=== PATIENT | male | born 1975 | race Caucasian/White ===

== ENCOUNTER 2023-02-03 13:54 | Emergency (ER) | payer MEDICARE, MEDICAID ==
[~2023-02-03] VITALS: Ht 177.8 cm; Wt 94.3 kg
[~2023-02-03 13:54] MED LIST: ALPR2TAB2 PO; AMPH30TA2 PO; CARI350T PO; CRS350T PO; GABA800T PO; OMEP-10 PO; PROP10TA8 PO; TRAM50TA2 PO; TRM50T PO
--- NOTE | 2023-02-03 14:38 | ED General ---
General Chief Complaint: General Problems/Pain Stated Complaint: LOWER BACK PAIN | VISION LOSS | SHRINKAGE Nursing Triage Note: PT AMB TO [facility] 7 WITH C/O LOW BACK PAIN, BLURRY VISION, LUMPS ALL OVER BODY, SHRINKAGE OF PRIVATE PARTS, DEFORMED TONGUE AND THINKS HE HAS RADIATION POISONING. PT STATES ALL SYMPTOMS STARTED SEVERAL MONTHS AGO Source of Information: Patient Exam Limitations: No Limitations History of Present Illness Date Seen by Provider: Feb 03, 2023 Time Seen by Provider: 14:34 Initial Comments Patient is a 47-year-old male who presents to the ED for multiple complaints. Patient states he has had low back pain for the past 2 to 3 months. Described as sharp located bilateral lower abdomen. Pain is constant not necessarily worse with movement. Frequent urination without any blood or mucus in his urine . Has been taking Tylenol without much improvement. States he had an MRI 1 month ago which was unremarkable. Denies of any specific injury. Patient states he has had blurry vision for the past 4 months. Blurry vision seems to be worse with closer object. Denies of any headache with this blurry vision or unilateral weakness or sensory changes. Patient states symptoms appeared to occur after he he received radiation from x-ray of his abdomen as he was complaining of abdominal pain at that time. States he has pain all over feels distended. Decreased appetite not eating as much. He is concerned he has radiation poisoning or some type of cancer. History of colon cancer. Reports normal bowel movements. Patient denies fever, chills, chest pain, shortness of breath, cough, vomiting or diarrhea. Patient also reports knots that developed to his upper and lower extremities. Denies of any injuries or on blood thinners. Patient is concern for radiation poisoning. He is concerned that his cells are breaking down. Allergies and Home Medications Allergies Coded Allergies: No Known Drug Allergies (Unverified , 12/26/13) Patient Home Medication List Home Medication List Reviewed: Yes Alprazolam (Xanax) 2 Mg Tablet, 2 MG PO QID, (Reported) Entered as Reported by: JIN KLEIN on 12/26/13 5606 Amphet Asp/Amphet/D-Amphet (Adderall 30 Mg Tablet) 30 Mg Tablet, 30 MG PO TID, (Reported) Entered as Reported by: JIN KLEIN on 12/26/13 2020 Carisoprodol (Soma) 350 Mg Tablet, 1 TAB PO TID Prescribed by: SUMIT LUGO on 12/26/13 133 Carisoprodol (Soma) 350 Mg Tablet, 350 MG PO five times daily, (Reported) Entered as Reported by: JIN KLEIN on 12/26/131336 Gabapentin (Neurontin) 800 Mg Tablet, 800 MG PO QID, (Reported) Entered as Reported by: JIN KLEIN on 12/26/131336 Omeprazole (Prilosec 20 Mg) 20 Mg Capsule.dr, 20 MG PO BID, (Reported) Entered as Reported by: JIN KLEIN on 12/26/13 133 Propranolol Hcl (Inderal) 10 Mg Tablet, 10 MG PO QID, (Reported) Entered as Reported by: JIN KLEIN on 12/26/131336 Tramadol Hcl (Ultram) 50 Mg Tab, 50 MG PO Q4-6HR PRN for PAIN Prescribed by: SUMIT LUGO on 12/26/13 133 Tramadol Hcl (Tramadol Hcl) 50 Mg Tablet, 50 MG PO Q4H, (Reported) Entered as Reported by: JIN KLEIN on 12/26/131336 Review of Systems Review of Systems Constitutional: No chills, No diaphoresis, No malaise, No weakness EENTM: blurred vision; No hearing loss, No double vision Respiratory: No cough, No dyspnea on exertion Cardiovascular: No chest pain Gastrointestinal: abdominal pain; No constipation, No diarrhea, No dysphagia, No nausea, No vomiting Genitourinary: No decreased output, No discharge, No dysuria; frequency Musculoskeletal: back pain; No joint pain; muscle pain Skin: No change in color, No change in hair/nails All Other Systems Reviewed Negative Unless Noted: Yes Past Lhlsjtl-Cpbtjt-Vfvyao Hx Patient Social History Tobacco Use?: No Use of E-Cig and/or Vaping dev: Yes Substance use?: No Alcohol Use?: No Pt feels they are or have been: No Immunizations Up To Date PED Vaccines UTD: Yes Past Medical History Surgery/Hospitalization HX: ANXIETY, DEPRESSION, NEUROPATHY Surgeries: Yes Appendectomy Respiratory: No Cardiac: Yes Hypertension Neurological: No Musculoskeletal: Yes Chronic Back Pain Psychosocial: Yes (self-mutilation, panic disorder with agoraphobia) ADD/ADHD, Anxiety, ODD Physical Exam Vital Signs Vital Signs - First Documented 02/03/23 14:08 Temp 36.4 Pulse 78 Resp 14 B/P (MAP) 169/103 (125) Pulse Ox 99 O2 Delivery Room Air Capillary Refill : Height, Weight, BMI Height: 5'10.00" Weight: 165lbs. oz. [id number]; 29.00 BMI Method:Stated General Appearance: No Apparent Distress, WD/WN Eyes: Bilateral Eye Normal Inspection, Bilateral Eye PERRL, Bilateral Eye EOMI HEENT: PERRL/EOMI, TMs Normal, Normal ENT Inspection, Pharynx Normal Neck: Full Range of Motion, Normal Inspection, Non Tender, Supple Respiratory: Chest Non Tender, Lungs Clear, Normal Breath Sounds, No Accessory Muscle Use, No Respiratory Distress Cardiovascular: Regular Rate, Rhythm, No Edema, No Gallop, No JVD, No Murmur Gastrointestinal: Normal Bowel Sounds, No Organomegaly, No Pulsatile Mass, Non Tender Back: Normal Inspection, No CVA Tenderness, No Vertebral Tenderness Extremity: Normal Capillary Refill, Normal Inspection, Normal Range of Motion, Non Tender Neurologic/Psychiatric: Alert, Oriented x3, No Motor/Sensory Deficits, Normal Mood/Affect, material engineer II-XII Norm as Tested Skin: Normal Color, Warm/Dry Progress/Results/Core Measures Suspected Sepsis SIRS Temperature: Pulse: 78 Respiratory Rate: 14 Laboratory Tests 02/03/23 14:32: White Blood Count 7.8 Blood Pressure 169 /103 Mean: 125 Laboratory Tests 02/03/23 14:32: Creatinine 0.87, Platelet Count 324, Total Bilirubin 0.4 Results/Orders Lab Results Laboratory Tests Test 02/03/23 14:32 02/03/23 14:44 Range/Units White Blood Count 7.8 4.3-11.0 10^3/uL Red Blood Count 4.57 4.30-5.52 10^6/uL Hemoglobin 14.3 13.3-17.7 g/dL Hematocrit 43 40-54 % Mean Corpuscular Volume 93 80-99 fL Mean Corpuscular Hemoglobin 31 25-34 pg Mean Corpuscular Hemoglobin Concent 34 32-36 g/dL Red Cell Distribution Width 12.7 10.0-14.5 % Platelet Count 324 130-400 10^3/uL Mean Platelet Volume 9.3 9.0-12.2 fL Immature Granulocyte % (Auto) 0 % Neutrophils (%) (Auto) 59 42-75 % Lymphocytes (%) (Auto) 26 12-44 % Monocytes (%) (Auto) 11 0-12 % Eosinophils (%) (Auto) 4 0-10 % Basophils (%) (Auto) 1 0-10 % Neutrophils # (Auto) 4.6 1.8-7.8 10^3/uL Lymphocytes # (Auto) 2.0 1.0-4.0 10^3/uL Monocytes # (Auto) 0.8 0.0-1.0 10^3/uL Eosinophils # (Auto) 0.3 0.0-0.3 10^3/uL Basophils # (Auto) 0.1 0.0-0.1 10^3/uL Immature Granulocyte # (Auto) 0.0 0.0-0.1 10^3/uL Sodium Level 141 135-145 MMOL/L Potassium Level 4.1 3.6-5.0 MMOL/L Chloride Level 107 98-107 MMOL/L Carbon Dioxide Level 25 21-32 MMOL/L Anion Gap 9 5-14 MMOL/L Blood Urea Nitrogen 9 7-18 MG/DL Creatinine 0.87 0.60-1.30 MG/DL Estimat Glomerular Filtration Rate 106 BUN/Creatinine Ratio 10 Glucose Level 88 70-105 MG/DL Calcium Level 9.1 8.5-10.1 MG/DL Corrected Calcium 8.9 8.5-10.1 MG/DL Total Bilirubin 0.4 0.1-1.0 MG/DL Aspartate Amino Transf (AST/SGOT) 16 5-34 U/L Alanine Aminotransferase (ALT/SGPT) 16 0-55 U/L Alkaline Phosphatase 49 40-136 U/L C-Reactive Protein High Sensitivity 0.03 0.00-0.50 MG/DL Total Protein 7.0 6.4-8.2 GM/DL Albumin 4.3 3.2-4.5 GM/DL Lipase 31 8-78 U/L Urine Color YELLOW Urine Clarity SL CLOUDY Urine pH 7.5 5-9 Urine Specific [place] 1.015 L 1.016-1.022 Urine Protein NEGATIVE NEGATIVE Urine Glucose (UA) NEGATIVE NEGATIVE Urine Ketones NEGATIVE NEGATIVE Urine Nitrite NEGATIVE NEGATIVE Urine Bilirubin NEGATIVE NEGATIVE Urine Urobilinogen 1.0 < = 1.0 MG/DL Urine Leukocyte Esterase NEGATIVE NEGATIVE Urine RBC (Auto) NEGATIVE NEGATIVE Urine RBC NONE /HPF Urine WBC RARE /HPF Urine Crystals PRESENT H /LPF Urine Amorphous Sediment MOD SYLVESTER PHOSPHATE H /LPF Urine Bacteria MODERATE H /HPF Urine Casts NONE /LPF Urine Mucus NEGATIVE /LPF Urine Culture Indicated YES My Orders Orders - LB ORTIZ Cbc With Automated Diff (02/03/23 14:27) Comprehensive Metabolic Panel (02/03/23 14:27) Lipase (02/03/23 14:27) Ua Culture If Indicated (02/03/23 14:27) Hs C Reactive Protein (02/03/23 14:27) Iv/Invasive Line Insertion .IV INSERT (02/03/23 14:27) Urine Culture (02/03/23 14:44) Vital Signs/I&O 02/03/23 14:08 Temp 36.4 Pulse 78 Resp 14 B/P (MAP) 169/103 (125) Pulse Ox 99 O2 Delivery Room Air Capillary Refill : Blood Pressure Mean: 125 Departure Communication (PCP) Patient with multiple complaints. Symptoms over the past 3 to 4 months. Vital signs stable. Patient is concern for potential radiation poisoning from a x-ray of his abdomen 3 to 4 months ago. Has had blurry vision seems to be worse with objects closer. No complete visual loss. Bilateral flank pain for the past few months. Generalized abdominal pain reports normal bowel movements. No fever, night sweats, chest pain or shortness of breath. Patient also reports low back pain had a MRI performed 1 month ago which she states was unremarkable. No bowel or urine incontinence or saddle paresthesia. No neurological red flag findings. Denies of any headache. Due to length of symptoms did suggest generalized lab work. Patient is concerned for cancer and "cell breakdown". G eneral lab work was grossly unremarkable CBC, CMP. Urinalysis without evidence of infection or hematuria suggesting kidney stone of his flank pain. Did offer CT scan of the abdomen as he states he feels bloated and had this continues abdominal pain but patient would rather wait at this time. Family history of colon cancer. suggest following up with your primary care physician for further evaluation of your symptoms. He does not appear toxic or septic. Patient is currently being managed by [facility] in [place]. Impression Primary Impression: Abdominal pain Additional Impression: Blurry vision Disposition: 01 HOME, SELF-CARE Condition: Stable Departure-Patient Inst. Decision time for Depature: 15:08 Referrals: [facility] (PCP/Family) Primary Care Physician MAXIMO GREGG OD Patient Instructions: Flank Pain ED Add. Discharge Instructions: Recommend following up with your primary care physician for further evaluation. Recommend following up with optometry for the blurry vision. All discharge instructions reviewed with patient and/or family. Voiced understanding. LB ORTIZ Feb 03, 2023 14:38
[2023-02-03 14:46] LABS: BASOPHILS # (AUTO) 0.1 10^3/uL (0.0-0.1); BASOPHILS % (AUTO) 1 % (0-10); EOSINOPHILS # (AUTO) 0.3 10^3/uL (0.0-0.3); EOSINOPHILS % (AUTO) 4 % (0-10); HEMATOCRIT 43 % (40-54); HEMOGLOBIN 14.3 g/dL (13.3-17.7); LYMPHOCYTES % (AUTO) 26 % (12-44); MEAN CORPUSCULAR HEMOGLOBIN 31 pg (25-34); MEAN CORPUSCULAR HGB CONC 34 g/dL (32-36); MEAN CORPUSCULAR VOLUME 93 fL (80-99); MEAN PLATELET VOLUME 9.3 fL (9.0-12.2); MONOCYTES # (AUTO) 0.8 10^3/uL (0.0-1.0); MONOCYTES % (AUTO) 11 % (0-12); NEUTROPHILS # (AUTO) 4.6 10^3/uL (1.8-7.8); NEUTROPHILS % (AUTO) 59 % (42-75); PLATELET COUNT 324 10^3/uL (130-400); WHITE BLOOD COUNT 7.8 10^3/uL (4.3-11.0)
[2023-02-03 14:52] LABS: ALBUMIN 4.3 GM/DL (3.2-4.5); POTASSIUM 4.1 MMOL/L (3.6-5.0)
[2023-02-03 14:52] LABS: BILIRUBIN,URINE NEGATIVE (NEGATIVE); CLARITY,URINE SL CLOUDY; COLOR,URINE YELLOW; GLUCOSE, URINE (UA) NEGATIVE (NEGATIVE); KETONES,URINE NEGATIVE (NEGATIVE); LEUKOCYTE ESTERASE ,URINE NEGATIVE (NEGATIVE); NITRITE,URINE NEGATIVE (NEGATIVE); PH,URINE 7.5 (5-9); PROTEIN,URINE NEGATIVE (NEGATIVE)
[2023-02-03 14:53] LABS: CALCIUM 9.1 MG/DL (8.5-10.1)
[2023-02-03 14:56] LABS: BILIRUBIN,TOTAL 0.4 MG/DL (0.1-1.0)
[2023-02-03 14:58] LABS: CREATININE SERUM 0.87 MG/DL (0.60-1.30)
[2023-02-03 15:01] LABS: AMORPHOUS SEDIMENT,UR MOD AMOR PHOSPHATE /LPF; BACTERIA,URINE MODERATE /HPF; WBC,URINE RARE /HPF
[2023-02-03 15:14] VITALS: BP 166/109
== END 2023-02-03 15:13 | disposition home or self-care (01) ==
LOC: EDUNIT# 13:54 → ER 13:59
DX: H53.8 Other visual disturbances (principal); R10.84 Generalized abdominal pain; F17.290 Nicotine dependence, other tobacco product, uncomplicated; Z90.49 Acquired absence of other specified parts of digestive tract
CPT/HCPCS: 36415; 80053; 81000; 83690; 85025; 86141; 87088